=== PATIENT | male | born 1945 | race Caucasian/White ===

== ENCOUNTER 2019-03-17 08:23 | Inpatient (IN) | payer MEDICARE ==
[2019-03-06 12:56] LABS: BASOPHILS % (AUTO) 0.5 % (0-1); EOSINOPHILS # (AUTO) 0.1 X10'3 (0-0.9); EOSINOPHILS % (AUTO) 1.8 % (0-6); LYMPHOCYTES # (AUTO) 1.4 X10'3 (1.1-4.8); LYMPHOCYTES % (AUTO) 16.6 % (21-51); MEAN CORPUSCULAR HEMOGLOBIN 31.3 PG (27.0-31.0); MEAN CORPUSCULAR HGB CONC 33.5 g/dL (33.0-36.5); MEAN CORPUSCULAR VOLUME 93.3 FL (78-98); MEAN PLATELET VOLUME 10.9 FL (7.4-10.4); MONOCYTES # (AUTO) 0.6 X10'3 (0-0.9); MONOCYTES % (AUTO) 7.5 % (2-12); NEUTROPHILS # (AUTO) 6.2 X10'3 (1.8-7.7); NEUTROPHILS % (AUTO) 73.6 % (42-75); PRE OP HEMATOCRIT 40.8 % (42.0-52.0); PRE OP HEMOGLOBIN 13.7 g/dL (14.0-17.9); PRE OP PLATELET COUNT 218 X10'3 (140-440); RED BLOOD COUNT 4.37 X10'6 (4.70-6.10); RED CELL DISTRIBUTION WIDTH 14.8 % (11.5-14.5)
[2019-03-06 13:01] LABS: CLARITY,URINE CLEAR (Clear); COLOR,URINE YELLOW (Yellow); GLUCOSE, URINE NEGATIVE (Neg); KETONES,URINE NEGATIVE (Neg); LEUKOCYTE ESTERASE ,URINE NEGATIVE (Neg); NITRITES, URINE NEGATIVE (Neg); OCCULT BLOOD,URINE NEGATIVE (Neg); PH,URINE 5.5 (4.8-8.0); PROTEIN,URINE NEGATIVE (Neg); UROBILINOGEN,URINE 0.2 E.U/dL (0.2-1.0)
[2019-03-06 13:03] LABS: UA COLLECTION TYPE NON-SPECIFIED
[2019-03-06 13:10] LABS: PRE OP PROTIME 9.9 SECONDS (9.0-12.0)
[2019-03-06 13:17] LABS: ALBUMIN/GLOBULIN RATIO 1.3 (1.1-1.5); ALKALINE PHOSPHATASE 83 IU/L (46-116); BLOOD UREA NITROGEN 24 MG/DL (7-18); BUN/CREATININE RATIO 14.7 (5.4-32.0); CALCIUM 8.8 MG/DL (8.5-10.1); CHLORIDE 105 MMOL/L (99-107); CREATININE 1.63 MG/DL (0.60-1.10); PRE OP ALT 32 U/L (30-65); PRE OP ANION GAP 10 (8-16); PRE OP AST 22 U/L (10-37); PRE OP BILIRUB, TOTAL 0.9 MG/DL (0.0-1.0); PRE OP GLUCOSE 86 MG/DL (70-104); PRE OP POTASSIUM 4.5 MMOL/L (3.4-5.1); PRE OP SODIUM 139 MMOL/L (135-145); TOTAL CARBON DIOXIDE 24.4 MMOL/L (24-32); TOTAL PROTEIN 7.1 G/DL (6.4-8.2); eGFR 42 ML/MIN
[2019-03-06 15:24] LABS: LARGE PLATELETS FEW; PLATELET ESTIMATE NORMAL
[2019-03-17] VITALS (17 sets, daily range): BP systolic 98–173; BP diastolic 59–97
[~2019-03-17] VITALS: Ht 190.5 cm; Wt 104.0 kg
[~2019-03-17 08:23] MED LIST: ATOR20TA PO; DRON400T2 PO; HYDR-3972 PO; LISI10TA4 PO; PANT-47 PO; acetaminophen 325mg tablet PO ONE; cefazolin/dext.iso 2gm/100 ML IV ONE; celeCOXIB 100mg capsule PO ONE; famotidine 20mg tablet PO ONE; gabapentin 300mg capsule PO ONE; oxyCODONE SR 10mg (sust. release) tab PO ONE; ringers solution, lacted 1,000 ML IV SCH; tranexamic acid inj. 1,500 MG in normal saline 100ml IV soln 100 ML IV ONE
[2019-03-17] MEDS ORDERED: ROPIVAcaine 0.5% (5mg/ml) 30ml vial ONE ×2 (09:22→09:54)
[2019-03-17] MEDS: bacitracin inj 150,000 UNIT in sodium chloride irrig. sol 3,000 ML IR ONE ×2 (09:28→09:29)
[2019-03-17] MEDS ORDERED: ketamine 10mg/ml 20ml inj ONE (10:01)
[2019-03-17] MEDS ORDERED: acetaminophen 1,000mg/100ml IV 100 ML IV ONE (10:02)
[2019-03-17] MEDS ORDERED: MIDAZolam 5mg/ml 2ml vial ONE (10:03)
[2019-03-17] MEDS ORDERED: sevoflurane 250ml liquid IH ONE (10:03)
[2019-03-17] MEDS ORDERED: midazolam 2 mg/2 ml injection ONE (10:03)
[2019-03-17] MEDS ORDERED: fentaNYL /PF 50mcg/ml 5ml ampule ONE (10:03)
[2019-03-17] MEDS ORDERED: propofol inj 20 ML IV ONE (10:05)
[2019-03-17] MEDS ORDERED: rocuronium 10mg/ml inj IV ONE (10:05)
[2019-03-17] MEDS ORDERED: ondansetron/PF 4mg/2ml inj IV PRN ×2 (11:25→12:50)
[2019-03-17] MEDS ORDERED: ringers solution, lacted 1,000 ML IV SCH (11:25)
[2019-03-17] MEDS ORDERED: morphine 4 MG/ML inj SYRINge IV PRN ×2 (11:25)
[2019-03-17] MEDS ORDERED: meperidine/PF 25mg/ml syringe IV PRN ×3 (11:25)
[2019-03-17] MEDS ORDERED: proCHLORperazine 10 MG/2 ml inj IV PRN (11:25)
[2019-03-17] MEDS ORDERED: ceFAZolin 1000mg inj ONE (12:01)
[2019-03-17] MEDS ORDERED: fentaNYL/PF 50MCG/1 ML 2ML syringe ONE (12:24)
[2019-03-17] MEDS: potassium cl 20mEq in 1/2 NS 1,000 ML IV SCH ×2 (12:49→20:13)
[2019-03-17] MEDS ORDERED: oxyCODONE/APAP 10/325mg tablet PO PRN (12:50)
[2019-03-17] MEDS ORDERED: HYDROmorphone 1 mg/ml syringe IV PRN (12:50)
[2019-03-17] MEDS ORDERED: acetaminophen 325mg tablet PO PRN (12:50)
[2019-03-17] MEDS ORDERED: bisacodyl 10mg suppository rectal RC PRN (12:50)
[2019-03-17] MEDS ORDERED: diphenhydrAMINE 25mg capsule PO PRN ×2 (12:50)
[2019-03-17] MEDS ORDERED: magnesium hydroxide 30ml (MOM) UD suspension PO PRN (12:50)
[2019-03-17] MEDS: gabapentin 300mg capsule PO SCH ×2 (13:00→20:14)
--- NOTE | 2019-03-17 13:00 | NUR ---
Received from OR via bed, accompanied by Anesthesiologist. Report received. Initial physical assessment done and recorded.
[2019-03-17] MEDS: oxyCODONE/APAP 10/325mg tablet PO PRN ×3 (13:47→23:25)
--- NOTE | 2019-03-17 14:15 | NUR ---
Discharge criteria met, report to receiving floor. Transferred to room in stable condition.
[2019-03-17] MEDS: ceFAZolin 1GM/D5W- ADD-VANTAGE 50 ML IV SCH ×2 (16:18→23:25)
--- NOTE | 2019-03-17 18:27 | NUR ---
RECEIVED REPORT FROM ERIBERTO MEDINA AND ASSUMED PATIENT CARE
--- NOTE | 2019-03-17 18:34 | NUR ---
Report to Melonie MEDINA
[2019-03-17] MEDS: dronedarone hcl 400mg tablet PO SCH (20:13)
[2019-03-17] MEDS: pantoprazole 40mg Tablet.DR PO SCH (20:14)
[2019-03-17] MEDS: atorvastatin 20mg tablet PO SCH (20:14)
[2019-03-17] MEDS: ascorbic acid 500mg tablet PO SCH (20:14)
[2019-03-17] MEDS: lisinopril 10 MG tablet PO SCH (20:14)
[2019-03-17] MEDS: sennosides 8.6mg tablet PO SCH (20:15)
[2019-03-17] MEDS ORDERED: ATORVASTATIN CALCIUM PO SCH (21:00)
[2019-03-18 02:00] VITALS: BP 124/70
[2019-03-18 05:00] VITALS: BP 120/64
[2019-03-18] MEDS: oxyCODONE/APAP 10/325mg tablet PO PRN ×4 (05:27→17:47)
[2019-03-18] MEDS: potassium cl 20mEq in 1/2 NS 1,000 ML IV SCH ×3 (05:27→20:17)
--- NOTE | 2019-03-18 06:16 | NUR ---
REPORT GIVEN TO ERIBERTO MEDINA
[2019-03-18 07:00] LABS: BASOPHILS % (AUTO) 0.1 % (0-1); EOSINOPHILS % (AUTO) 0 % (0-6); HEMATOCRIT 34.3 % (42.0-52.0); HEMOGLOBIN 11.5 g/dl (14.0-17.9); LYMPHOCYTES # (AUTO) 0.8 X10'3 (1.1-4.8); LYMPHOCYTES % (AUTO) 5.7 % (21-51); MEAN CORPUSCULAR HEMOGLOBIN 31.6 PG (27.0-31.0); MEAN CORPUSCULAR HGB CONC 33.5 g/dL (33.0-36.5); MEAN CORPUSCULAR VOLUME 94.3 FL (78-98); MEAN PLATELET VOLUME 10.2 FL (7.4-10.4); MONOCYTES # (AUTO) 0.5 X10'3 (0-0.9); MONOCYTES % (AUTO) 3.8 % (2-12); NEUTROPHILS # (AUTO) 13.2 X10'3 (1.8-7.7); NEUTROPHILS % (AUTO) 90.4 % (42-75); PLATELET COUNT 206 X10'3 (140-440); RED BLOOD COUNT 3.64 X10'6 (4.70-6.10); RED CELL DISTRIBUTION WIDTH 14.6 % (11.5-14.5); WHITE BLOOD COUNT 14.6 X10'3 (4.5-11.0)
[2019-03-18 07:09] LABS: ANION GAP 8 (8-16); CHLORIDE 104 MMOL/L (99-107); POTASSIUM 5.1 MMOL/L (3.5-5.1); SODIUM 136 MMOL/L (135-145); TOTAL CARBON DIOXIDE 24.3 MMOL/L (24-32)
[2019-03-18] MEDS: dronedarone hcl 400mg tablet PO SCH ×2 (07:27→20:13)
[2019-03-18] MEDS: gabapentin 300mg capsule PO SCH ×3 (07:27→20:13)
[2019-03-18] MEDS: pantoprazole 40mg Tablet.DR PO SCH ×2 (07:27→20:13)
[2019-03-18] MEDS: ascorbic acid 500mg tablet PO SCH ×2 (07:27→20:13)
[2019-03-18] MEDS: multivitamins, therapeutics tablet PO SCH (07:28)
[2019-03-18 07:48] LABS: INR 1.2 INR
[2019-03-18 10:00] VITALS: BP 108/54
[2019-03-18] MEDS ORDERED: warfarin 7.5mg tablet PO ONE (10:00)
[2019-03-18 14:00] VITALS: BP 114/59
[2019-03-18 18:00] VITALS: BP 124/61
--- NOTE | 2019-03-18 18:27 | NUR ---
RECEIVED REPORT FROM ERIBERTO MEDINA AND ASSUMED PATIENT CARE
--- NOTE | 2019-03-18 18:34 | NUR ---
Report to Melonie MEDINA
[2019-03-18] MEDS: sennosides 8.6mg tablet PO SCH (20:13)
[2019-03-18] MEDS: celeCOXIB 100mg capsule PO SCH (20:13)
[2019-03-18] MEDS: lisinopril 10 MG tablet PO SCH (20:14)
[2019-03-18] MEDS: atorvastatin 20mg tablet PO SCH (20:17)
[2019-03-18 22:00] VITALS: BP 122/64
[2019-03-19] MEDS: oxyCODONE/APAP 10/325mg tablet PO PRN ×3 (01:33→09:06)
[2019-03-19] MEDS: potassium cl 20mEq in 1/2 NS 1,000 ML IV SCH (04:49)
[2019-03-19 06:00] VITALS: BP 136/75
--- NOTE | 2019-03-19 06:05 | NUR ---
Patient in room [facility]. I have received report from ELLIE MEDINA and had the opportunity to ask questions and assume patient care.
--- NOTE | 2019-03-19 06:14 | NUR ---
REPORT GIVEN TO TUNDE MEDINA
[2019-03-19 06:24] LABS: BASOPHILS % (AUTO) 0.4 % (0-1); EOSINOPHILS # (AUTO) 0.1 X10'3 (0-0.9); EOSINOPHILS % (AUTO) 0.7 % (0-6); HEMATOCRIT 35.2 % (42.0-52.0); HEMOGLOBIN 11.7 g/dl (14.0-17.9); MEAN CORPUSCULAR HEMOGLOBIN 31.5 PG (27.0-31.0); MEAN CORPUSCULAR HGB CONC 33.3 g/dL (33.0-36.5); MEAN CORPUSCULAR VOLUME 94.8 FL (78-98); MEAN PLATELET VOLUME 9.5 FL (7.4-10.4); MONOCYTES # (AUTO) 0.9 X10'3 (0-0.9); MONOCYTES % (AUTO) 7.4 % (2-12); NEUTROPHILS # (AUTO) 8.8 X10'3 (1.8-7.7); NEUTROPHILS % (AUTO) 74.5 % (42-75); PLATELET COUNT 195 X10'3 (140-440); RED BLOOD COUNT 3.71 X10'6 (4.70-6.10); RED CELL DISTRIBUTION WIDTH 14.8 % (11.5-14.5); WHITE BLOOD COUNT 11.8 X10'3 (4.5-11.0)
[2019-03-19 06:45] LABS: INR 1.4 INR
[2019-03-19] MEDS ORDERED: ASPI-1264 PO (07:27)
[2019-03-19] MEDS: dronedarone hcl 400mg tablet PO SCH (08:57)
[2019-03-19] MEDS: celeCOXIB 100mg capsule PO SCH (08:57)
[2019-03-19] MEDS: gabapentin 300mg capsule PO SCH (08:58)
[2019-03-19] MEDS: multivitamins, therapeutics tablet PO SCH (08:58)
[2019-03-19] MEDS: ascorbic acid 500mg tablet PO SCH (08:58)
[2019-03-19] MEDS: pantoprazole 40mg Tablet.DR PO SCH (08:58)
[2019-03-19 10:00] VITALS: BP 109/61
[2019-03-19] MEDS ORDERED: warfarin 5mg tablet PO ONE (10:00)
--- NOTE | 2019-03-19 11:00 | NUR ---
PATIENT DC HOME SAFELY WITH . UNDERSTANDS DC INSTRUCTIONS.
[2019-03-19] MEDS ORDERED: acetaminophen 325mg tablet PO PRN (12:50)
== END 2019-03-19 10:55 | disposition home health service (06) | DRG 470 ==
LOC: PAS IN 08:23 → EDSTATUS 10:30 → ORTHO 4S 14:15
PROVIDERS: ADMIT Specialist; ATTEND Specialist
PROC: 3E0T3BZ Introduction of Anesthetic Agent into Peripheral Nerves and Plexi, Percutaneous Approach (ICD-10-PCS; 2019-03-17)
PROC: 0SRC0J9 Replacement of Right Knee Joint with Synthetic Substitute, Cemented, Open Approach (ICD-10-PCS; principal; 2019-03-17 10:03)
DX: M17.11 Unilateral primary osteoarthritis, right knee (principal); E78.5 Hyperlipidemia, unspecified; I10 Essential (primary) hypertension; D64.9 Anemia, unspecified; I25.10 Atherosclerotic heart disease of native coronary artery without angina pectoris; K21.9 Gastro-esophageal reflux disease without esophagitis; M54.9 Dorsalgia, unspecified; G89.4 Chronic pain syndrome; Z72.0 Tobacco use; Z85.828 Personal history of other malignant neoplasm of skin
CPT/HCPCS: 36415; 73560; 80051; 80053; 81003; 82948; 85025; 85610; 85730; 87070; 97110; 97116; 97161; 97530; A6449; A6455; A7000; C1713; C1758; C1776; G0378; J0131; J0690; J2250; J2270; J2704; J2795; J3010; J7030; J7120